=== PATIENT | male | born 1990 | race Hispanic/Latino ===

== ENCOUNTER 2020-02-08 13:49 | Emergency (ER) | payer SELFPAY ==
--- NOTE | 2020-02-08 14:38 | EDPHYS ---
Physician Documentation [facility] Name: Otis Wen Age: 29 yrs Sex: Male : 1990 Arrival Date: 02/08/2020 Time: 14:00 Bed 12 Private MD: ED Physician Desean Kauffman HPI: 02/07 14:32 This 29 yrs old Male presents to ER via Ambulatory with complaints of Foot rn Problem. 14:32 The patient presents with pain, swelling. The complaints affect the left foot. rn 14:32 Onset: The symptoms/episode began/occurred 5 day(s) ago. Modifying factors: The rn symptoms are alleviated by nothing, the symptoms are aggravated by movement. Severity of symptoms: At their worst the symptoms were moderate, in the emergency department the symptoms have improved. The patient has experienced a previous episode. Reports similar episode in past, + swelling and pain to left great toe, no injury, has been present for about 5 days, went away after a while last time. No known medical problems. No other joint problems. . Historical: - Allergies: 14:23 No Known Allergies; ca1 - Home Meds: 14:23 None [Active]; ca1 - PMHx: 14:23 None; ca1 - PSHx: 14:23 None; ca1 - Immunization history:: Adult Immunizations not up to date. - Social history:: Smoking status: Patient denies any tobacco usage or history of. - Family history:: not pertinent. - Hospitalizations: : No recent hospitalization is reported. ROS: 14:32 Constitutional: Negative for fever, chills, and weight loss, MS/Extremity: Negative for rn injury, + left great toe pain and swelling Exam: 14:32 Constitutional: This is a well developed, well nourished patient who is awake, alert, rn and in no acute distress. MS/ Extremity: Pulses equal, no cyanosis. Base of left great toe with erythema/warmth/swelling, + painful ROM of great toe, no streaking or swelling/redness elsewhere. Vital Signs: 14:20 BP 144 / 97; Pulse 59; Resp 15 S; Temp 98.8(TE); Pulse Ox 100% on R/A; Weight 81.65 kg ca1 (R); Height 5 ft. 8 in. (172.72 cm); Pain 6/10; 14:20 Body Mass Index 27.37 (81.65 kg, 172.72 cm) ca1 MDM: 14:25 Patient medically screened. rn 14:32 Differential diagnosis: gout. Data reviewed: vital signs, nurses notes, and as a rn result, I will discharge patient. Counseling: I had a detailed discussion with the patient and/or guardian regarding: the historical points, exam findings, and any diagnostic results supporting the discharge/admit diagnosis, the need for outpatient follow up, to return to the emergency department if symptoms worsen or persist or if there are any questions or concerns that arise at home. Special discussion: I discussed with the patient/guardian in detail that at this point there is no indication for admission to the hospital. It is understood, however, that if the symptoms persist or worsen the patient needs to return immediately for re-evaluation. Based on the history and exam findings, there is no indication for further emergent testing or inpatient evaluation. I discussed with the patient/guardian the need to see the primary care provider for further evaluation of the symptoms. I discussed with the patient/guardian the need to see the musician instrumental for further evaluation of the symptoms. ED course: Pt most likely with gout given repeat symptoms, afebrile, no trauma, and isolation to left first great toe. Advised limitation of ETOH and red meat. Will f/u with PCP/rheumatology for gout testing and confirmation.. Administered Medications: 15:08 Drug: predniSONE 60 mg Route: PO; ca1 15:08 Follow up: Response: Medication administered at discharge. ca1 15:08 Drug: Colchicine-Probenecid 2 tabs Route: PO; ca1 15:08 Follow up: Response: Medication administered at discharge. ca1 Disposition: 02/08/20 14:37 Discharged to Home. Impression: Gout. - Condition is Stable. - Discharge Instructions: Gout. - Prescriptions for Diclofenac Sodium 75 mg Oral Tablet, Delayed Release (E.C.) - take 1 tablet by ORAL route 2 times per day; 20 tablet. Medrol (Kennedy) 4 mg Oral Tablets, Dose Pack - take 1 tablet by ORAL route as directed - follow package instructions; 1 packet. - Medication Reconciliation Form, Thank You Letter, Antibiotic Education, Prescription Opioid Use form. - Follow up: Private Physician; When: As needed; Reason: Recheck today's complaints, Re-evaluation by your physician. - Problem is new. - Symptoms have improved. Signatures: Desean Kauffman MD MD rn Acob, JEROME Ceron RN ca1 Corrections: (The following items were deleted from the chart) 15:09 14:37 02/08/2020 14:37 Discharged to Home. Impression: Gout. Condition is Stable. Forms ca1 are Medication Reconciliation Form, Thank You Letter, Antibiotic Education, Prescription Opioid Use. Follow up: Private Physician; When: As needed; Reason: Recheck today's complaints, Re-evaluation by your physician. Problem is new. Symptoms have improved. rn
--- NOTE | 2020-02-08 14:38 | ER ---
Nurse's Notes [facility] Name: Otis Wen Age: 29 yrs Sex: Male : 1990 Arrival Date: 02/08/2020 Time: 14:00 Bed 12 Private MD: Diagnosis: Gout Presentation: 02/07 14:20 Chief complaint: Patient states: Swelling, redness and pain on big toe on the L foot, ca1 started Sunday. Denies injury. Reports previous swelling 3-4 months ago, but did not seek medical consult. Coronavirus screen: Proceed with normal triage. Patient denies a cough. Patient denies shortness of breath or difficulty breathing. Patient denies measured and/or subjective temperature greater than 100.4F prior to today's visit. Patient denies travel on a cruise ship or to a country the [facility] currently lists as an affected area. Patient denies contact with known and/or suspected case of COVID-19. Ebola Screen: Patient negative for fever greater than or equal to 101.5 degrees Fahrenheit, and additional compatible Ebola Virus Disease symptoms Patient denies exposure to infectious person. Patient denies travel to an Ebola-affected area in the 21 days before illness onset. No symptoms or risks identified at this time. Initial Sepsis Screen: Does the patient meet any 2 criteria? No. Patient's initial sepsis screen is negative. Does the patient have a suspected source of infection? No. Patient's initial sepsis screen is negative. Risk Assessment: Do you want to hurt yourself or someone else? Patient reports no desire to harm self or others. Onset of symptoms was February 08, 2020. 14:20 Method Of Arrival: Ambulatory ca1 14:20 Acuity: BRENDAN 4 ca1 Triage Assessment: 14:23 General: Appears in no apparent distress. comfortable, Behavior is calm, cooperative, ca1 appropriate for age. Pain: Complains of pain in left first toe Pain currently is 6 out of 10 on a pain scale. Pain began 5 days. Neuro: Level of Consciousness is awake, alert, obeys commands, Oriented to person, place, time, situation. Derm: Skin is intact, is healthy with good turgor, Skin is pink, warm \T\ dry. Musculoskeletal: Circulation, motion, and sensation intact. Capillary refill < 3 seconds, Swelling present in left first toe. Historical: - Allergies: 14:23 No Known Allergies; ca1 - Home Meds: 14:23 None [Active]; ca1 - PMHx: 14:23 None; ca1 - PSHx: 14:23 None; ca1 - Immunization history:: Adult Immunizations not up to date. - Social history:: Smoking status: Patient denies any tobacco usage or history of. - Family history:: not pertinent. - Hospitalizations: : No recent hospitalization is reported. Screenin:30 Abuse screen: Denies threats or abuse. Denies injuries from another. Nutritional ca1 screening: No deficits noted. Tuberculosis screening: No symptoms or risk factors identified. Fall Risk None identified. Assessment: 14:30 Reassessment: see triage assessment. ca1 Vital Signs: 14:20 BP 144 / 97; Pulse 59; Resp 15 S; Temp 98.8(TE); Pulse Ox 100% on R/A; Weight 81.65 kg ca1 (R); Height 5 ft. 8 in. (172.72 cm); Pain 6/10; 14:20 Body Mass Index 27.37 (81.65 kg, 172.72 cm) ca1 ED Course: 14:00 Patient arrived in ED. as 14:22 Triage completed. ca1 14:23 Arm band placed on right wrist. ca1 14:24 Jie Rodriguez, JEROME is Primary Nurse. ca1 14:25 Desean Kauffman MD is Attending Physician. rn 14:30 Patient has correct armband on for positive identification. Bed in low position. Call ca1 light in reach. Side rails up X 1. Pulse ox on. NIBP on. 15:08 No provider procedures requiring assistance completed. Patient did not have IV access ca1 during this emergency room visit. Administered Medications: 15:08 Drug: predniSONE 60 mg Route: PO; ca1 15:08 Follow up: Response: Medication administered at discharge. ca1 15:08 Drug: Colchicine-Probenecid 2 tabs Route: PO; ca1 15:08 Follow up: Response: Medication administered at discharge. ca1 Outcome: 14:37 Discharge ordered by . rn 15:08 Discharged to home ambulatory. ca1 15:08 Condition: stable 15:08 Discharge instructions given to patient, Instructed on discharge instructions, follow up and referral plans. medication usage, Demonstrated understanding of instructions, follow-up care, medications, Prescriptions given X 2. 15:09 Patient left the ED. ca1 Signatures: Hortensia Paulino Roman, MD MD rn AcobJie RN RN ca1
[2020-02-08] MEDS ORDERED: COLCHICINE 0.6 MG TAB ONE (15:14)
[2020-02-08] MEDS ORDERED: predniSONE 20 MG TAB ONE (15:14)
[2020-02-08 15:46] VITALS: BP 144/97; TEMP 98.8; O2SAT 100
== END 2020-02-08 15:09 | disposition home or self-care (01) ==
LOC: ER 13:49
DX: M10.9 Gout, unspecified (principal)
CPT/HCPCS: 99283; J7512